=== PATIENT | female | born 1995 | race Hispanic/Latino ===

== ENCOUNTER 2019-08-26 05:35 | Day surgery (SDC) | payer OTHER ==
[~2019-08-26] VITALS: Ht 157.5 cm; Wt 79.8 kg
[~2019-08-26 05:35] MED LIST: CIPROFLOXACIN500 MG PO; ETONOGESTREL-E1 EACH; HYDROCODON-ACE1 EA10 PO; PERCOCET 7.5-31 EACH PO
--- NOTE | 2019-08-26 09:05 | NUR ---
08/26/19 09 Lucy Euceda 0850 PT ARRIVED IN PACU TEARFUL AND C/O NAUSEA. COOL CLOTH TO BACK OF NECK AND SNIFFING ON ALCOHOL WIPE. 0857 C/O THROAT PAIN 11/28. FENTANYL 25MCG GIVEN IVP. 904 RESTING. REU.
--- NOTE | 2019-08-26 09:32 | NUR ---
PT IS BACK TO DS FROM PACU. SHE IS REPORTING 7/10 PAIN AND SOME NAUSEA. SHE HAS A COOL CLOTH. DAD IS AT THE BEDSIDE. CALL LIGHT WITHIN REACH. WATER ON BEDSIDE TABLE. NO ADDITIONAL NEEDS AT THIS TIME.
--- NOTE | 2019-08-26 10:08 | NUR ---
PT IS REQUESTING TO GET UP AND USE THE RESTROOM. SHE IS ASSISTED UP OOB. SHE AMBULATES HERSELF TO AND FROM THE BATHROOM WITH STANDBY ASSIST. SHE REPORTS FEELING LIKE SHE WAS ABLE TO EMPTY HER BLADDER. SHE WOULD LIKE TO TAKE A NAP. SHE IS GIVEN FRESH WARM BLANKETS, THE LIGHTS ARE TURNED OFF AND THE HEAD OF THE BED IS LOWERED. CALL LIGHT WITHIN REACH.
[2019-08-26] MEDS ORDERED: HYDROCODONE-ACE15 M3 PO (10:19)
--- NOTE | 2019-08-26 10:41 | NUR ---
PT REPORTS THAT HER PAIN IS BETTER. SHE IS RESTING, DAD AT BEDSIDE. CALL LIGHT WITHIN REACH. SHE IS TOLERATING WATER. NO ADDITIONAL NEEDS.
--- NOTE | 2019-08-26 11:42 | NUR ---
PT IS REPORTING IMPROVEMENT IN PAIN, 2/10. SHE WOULD LIKE TO TRY SOME PUDDING. SHE IS EDUCATED THAT IF SHE IS ABLE TO EAT THE PUDDING AND KEEP IT DOWN THAT SHE CAN GO HOME IF SHE WOULD LIKE. DAD AT THE BEDSIDE. TOLERATING WATER. CALL LIGHT WITHIN REACH. NO ADDITIONAL NEEDS.
--- NOTE | 2019-08-26 12:47 | NUR ---
PT IS GIVEN VERBAL DC INSTRUCTIONS, SHE VERBALIZES UNDERSTANDING. SHE DOESN'T HAVE QUESTIONS AT THIS TIME. SHE USES THE RESTROOM PRIOR TO DC. SHE IS TAKEN TO VEHICLE VIA WC.
--- NOTE | 2019-08-29 15:23 | PATH ---
[facility] [address] [place], [place] [address] Signed SPECIMEN(S): A LEFT TONSIL SPECIMEN(S): B RIGHT TONSIL SPECIMEN(S): C UVULA AND SOFT PALATE SPECIMEN SOURCE: A. LEFT TONSIL B. RIGHT TONSIL C. UVULA AND SOFT PALATE CLINICAL HISTORY: Pre: Obstructive sleep apnea. Post: Tonsillectomy. FINAL PATHOLOGIC DIAGNOSIS: A. Tonsil, left, tonsillectomy: - Reactive follicular lymphoid hyperplasia. B. Tonsil, right, tonsillectomy: - Reactive follicular lymphoid hyperplasia. C. Uvula and soft palate, excision: - Uvula with adjacent soft palate mucosa and submucosal soft tissue with mild chronic inflammation. NAL:cml:C2NR MICROSCOPIC EXAMINATION: Histologic sections of all submitted blocks are examined by light microscopy. These findings, together with the gross examination, support the pathologic diagnosis. GROSS DESCRIPTION: Three specimens are received in three containers, labeled "EP." A. The specimen, labeled "ET, left tonsil," is received in formalin and consists of a 2.7 x 1.4 x 1.3 cm palatine tonsil. The mucosal surface is pink-salazar and smooth with areas of folds. Cut sections reveal a pink, homogeneous cut surface with the usual crypt-like architecture. The specimen is inked. Cook Enchilada sections are submitted in cassette (A1). B. The specimen, labeled "EP, right tonsil," is received in formalin and consists of a 2.2 x 1.7 x 1.0 cm palatine tonsil. The mucosal surface is pink-salazar and smooth with areas of folds. Cut sections reveal a pink, homogeneous cut surface with the usual crypt-like architecture. Cook [place]chilada sections are submitted in cassette (A1). C. The specimen, labeled "EP, uvula and soft palate," is received in formalin PATIENT NAME: JANNA KEITA PATHOLOGY DATE OF : [birth year] REPORT #: [id number] PHYSICIAN: NIKKI PATHOLOGY PCP: IVELISSE BUSH DO REPORT IS CONFIDENTIAL AND NOT TO BE RELEASED WITHOUT AUTHORIZATION [facility] [address] [place], [place] [address] Signed and consists of triangular-shaped piece of tissue that measures 1.7 x 1.9 x 0.6 cm. The mucosal surface is pink-salazar, smooth. The specimen is soft. Sectioning through the specimen is unremarkable. Cook [place]chilada sections are submitted in cassette (C1). JS (under the direct supervision of a pathologist) The Gross Description was prepared using a voice recognition system. The report was reviewed for accuracy; however, sound-alike word errors, addition and/or deletions may occur. If there is any question about this report, please contact Client Services. PERFORMING LABORATORY: The technical component was performed by [facility] [facility], [address] [place] [id number] (Cooker Meal: Beverly Guajardo MD; CLIA# [id number]). Professional interpretation was performed by [facility], [address] [place] [id number] (CLIA# [id number]). Diagnostician: Molly Vázquez MD Pathologist Electronically Signed 08/29/2019 Copies: ~ PATIENT NAME: JANNA KEITA PATHOLOGY DATE OF : [birth year] REPORT #: [id number] PHYSICIAN: NIKKI PATHOLOGY PCP: IVELISSE BUSH DO REPORT IS CONFIDENTIAL AND NOT TO BE RELEASED WITHOUT AUTHORIZATION
--- NOTE | 2019-09-02 10:19 | OR ---
[facility] [address] [place], [place] [address] Signed DATE OF OPERATION: 08/26/2019 SURGEON: Jaya Carl MD PREOPERATIVE DIAGNOSIS: Obstructive sleep apnea with tonsillar hypertrophy. POSTOPERATIVE DIAGNOSIS: Obstructive sleep apnea with tonsillar hypertrophy. PROCEDURES: Tonsillectomy, palatopharyngoplasty. ANESTHESIA: General orotracheal; DECORATING KILN OPERATOR, Shelly. PREOPERATIVE HISTORY: Janna is a 24-year-old lady with sleep apnea, enlarged tonsils, taken to the operating room for the above-mentioned procedures. OPERATIVE PROCEDURE AND FINDINGS: After informed consent, the patient was taken to the operating room, placed in supine position, where general orotracheal anesthesia was induced. The patient and procedure were verified. The patient was repositioned. McIvor mouth gag placed into suspension. Headlight exam of the pharynx showed markedly hypertrophic obstructive tonsils. Left tonsil was grasped with a tenaculum, retracted medially, and removed from its fossa with mucosal sparing incision with Coblation. Field was dry after the procedure. Same procedure on the right tonsil. Tonsils were sent to pathology. Palatopharyngoplasty was then performed with the Coblation unit. The length of excision was determined by palpating soft palate against the posterior pharyngeal wall. Essentially the superior portion of the tonsil, excision was extended across the midline. The portion of the posterior tonsillar pillars was also taken, transpalatal excision was performed. Specimen sent to pathology. Bleeding was controlled throughout with Coblation. The field was dry after the procedure. The closure was with 4-0 interrupted Vicryl, reapproximating posterior and anterior tonsillar pillar. Mucosa on each side and posterior and anterior palatal mucosa all the way to the midline. Excellent cosmetic closure was obtained. Airway was improved. Hemostasis was verified. The pharynx was suctioned clear of blood secretions. The mouth gag was removed. The patient was awakened, extubated, and transported to recovery room in good condition. No Electronically Signed By: JAYA CARL MD 09/02/19 1019 PATIENT NAME: JANNA KEITA OPERATIVE REPORT DATE OF : [birth year] REPORT #: [id number] PHYSICIAN: JAYA CARL MD PCP: IVELISSE BUSH DO REPORT IS CONFIDENTIAL AND NOT TO BE RELEASED WITHOUT AUTHORIZATION [address] [place], [place] [address] Signed complications. BLOOD LOSS: Minimal. SPECIMEN: To pathology. DRAINS: No drains. Jaya Carl MD GC/MODL /[id number] Copies: ~ Electronically Signed By: JAYA CARL MD 09/02/19 1019 PATIENT NAME: JANNA KEITA OPERATIVE REPORT DATE OF : [birth year] REPORT #: [id number] PHYSICIAN: JAYA CARL MD PCP: IVELISSE BUSH DO REPORT IS CONFIDENTIAL AND NOT TO BE RELEASED WITHOUT AUTHORIZATION
== END 2019-08-26 12:45 | disposition home or self-care (01) ==
LOC: OPS 05:35 → DS 05:35 → OPS 06:45
PROVIDERS: Otolaryngology
PROC: 0CBN0ZZ Excision of Uvula, Open Approach (ICD-10-PCS; principal; 2019-08-26 06:45)
PROC: 0CB30ZZ Excision of Soft Palate, Open Approach (ICD-10-PCS; 2019-08-26 06:45)
DX: G47.33 Obstructive sleep apnea (adult) (pediatric) (principal); J35.1 Hypertrophy of tonsils
CPT/HCPCS: 00170; 88304; 88305; J0330; J1100; J1790; J2001; J2250; J2405; J2550; J2704; J3010; J7040; J7121